=== PATIENT | male | born 1955 | race Caucasian/White ===

== ENCOUNTER 2023-02-25 10:28 | Observation (INO) | payer MEDICARE, BC ==
[~2023-02-25] VITALS: Ht 172.7 cm; Wt 58.0 kg
[2023-02-25 11:16] LABS: BASOPHILS ABSOLUTE AUTO 0.07 K/mm3 (0.00-0.23); BASOPHILS PERCENT AUTO 1 % (0-2); EOSINOPHILS ABSOLUTE AUTO 0.03 K/mm3 (0.00-0.68); EOSINOPHILS PERCENT AUTO 0 % (0-6); Hematocrit 47.8 % (37.0-53.0); Hemoglobin 16.9 g/dL (13.5-17.5); IMMATURE GRAN ABSOLUTE AUTO 0.04 K/mm3 (0.00-0.10); IMMATURE GRAN PERCENT AUTO 0 % (0-1); LYMPHOCYTES ABSOLUTE AUTO 1.12 K/mm3 (0.84-5.20); LYMPHOCYTES PERCENT AUTO 12 % (21-46); MONOCYTES ABSOLUTE AUTO 1.06 K/mm3 (0.16-1.47); MONOCYTES PERCENT AUTO 11 % (4-13); Mean Corpuscular HGB 37.7 pg (26.0-34.0); Mean Corpuscular HGB Conc 35.4 g/dL (31.5-36.5); Mean Corpuscular Volume 107 fL (80-100); Mean Platelet Volume 10.9 fL (9.1-12.4); NEUTROPHILS ABSOLUTE AUTO 7.44 K/mm3 (1.96-9.15); NEUTROPHILS PERCENT AUTO 76 % (41-73); Platelet Count 132 K/mm3 (150-400); RDW Coefficient Variation 13.1 % (11.7-14.2); RDW Standard Deviation 51.9 fL (35.1-46.3); Red Blood Cell Count 4.48 M/mm3 (4.30-5.90); White Blood Cell Count 9.76 K/mm3 (4.00-11.30)
[2023-02-25 11:43] LABS: Albumin, Blood 3.7 g/dL (3.4-5.0); Albumin/Globulin Ratio 1.1 (0.8-1.8); Bilirubin, Total 2.7 mg/dL (0.1-1.0); Bun/Creatinine Ratio 13.4 (12.0-20.0); Calcium, Blood 8.4 mg/dL (8.5-10.1); Creatinine, Blood 1.64 mg/dL (0.60-1.20); Globulin, Blood 3.4 g/dL (2.2-4.0); Total Protein, Blood 7.1 g/dL (6.4-8.2)
[2023-02-25 11:45] LABS: Potassium, Blood 2.4 mmol/L (3.5-5.5)
[2023-02-25 14:26] VITALS: BP 167/92
[2023-02-25 15:16] LABS: U Amphetamine Screen Not Detected; U Barbituate Screen Not Detected; U Benzodiazapine Screen Not Detected; U Buprenorphine Screen Not Detected; U Cannabinoids Screen Not Detected; U Cocaine Screen Not Detected; U Methadone Screen Not Detected; U Methamphetamine Screen Not Detected; U Opiates Screen Not Detected; U Oxycodone Screen Not Detected; U Phencyclidine Screen Not Detected
[2023-02-25 16:47] VITALS: BP 142/80
[2023-02-25 17:32] LABS: Magnesium, Blood 1.9 mg/dL (1.6-2.4); Potassium, Blood 2.8 mmol/L (3.5-5.5)
--- NOTE | 2023-02-25 17:45 | NUR ---
ADMISSION/SHIFT SUMMARY: PT IS A NEW ADMIT, ARRIVING TO UNIT AT APPROX 1415. PT ARRIVES A&Ox4, ANSWERS ALL QUESTIONS APPROPRIATELY, COOPERATIVE W/CARE, TRANSFERS SELF F/GURNEY TO BED. PT REPORTS DYSPNEA W/ACTIVITY, DENIES AT REST, O2 SATS >93% ON RA. SINUS RHYTHM ON MONITOR, RATE 90s, PT DENIES CHEST PAIN. PT REPORTS SMOKING 1.5 PPD, NICOTINE PATCH IN PLACE. 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 SINCE ARRIVAL, PT HAS HAD 2 LOOSE STOOLS, DENIES ABD PAIN OR N/V. FLUIDS INFUSING PER ORDERS. WILL CONTINUE TO MONITOR AND TREAT ACCORDINGLY UNTIL CHANGE OF SHIFT.
[2023-02-25 20:22] VITALS: BP 141/89
[2023-02-26 00:53] VITALS: BP 168/100
[2023-02-26 03:58] VITALS: BP 155/90
[2023-02-26 04:03] LABS: Bun/Creatinine Ratio 21.3 (12.0-20.0); Calcium, Blood 7.7 mg/dL (8.5-10.1); Creatinine, Blood 0.75 mg/dL (0.60-1.20); Magnesium, Blood 1.7 mg/dL (1.6-2.4); Potassium, Blood 2.9 mmol/L (3.5-5.5)
[2023-02-26 07:15] VITALS: BP 158/99
[2023-02-26 11:39] VITALS: BP 165/94
[2023-02-26 14:16] VITALS: BP 163/93
[2023-02-26] MEDS ORDERED: NICO21TP TOP (15:08)
[2023-02-26] MEDS ORDERED: MULVITA PO (15:08)
[2023-02-26] MEDS ORDERED: Prinivil10 MG PO (15:08)
[2023-02-26] MEDS ORDERED: POTCHL20ER PO (15:09)
--- NOTE | 2023-02-26 16:22 | NUR ---
DISCHARGE HOME PT A&O X4. BP ELEVATED. VSS. SPO2 > 92% ON RA. MONITOR SHOWING SR. FOLLOW UP EKG DONE & SEEN BY MD SETHI THIS SHIFT. PT DENYING PAIN/DISCOMFORT. PT DENYING DIARRHEA LAST NIGHT & TODAY W/ PT REPORT OF LAST DIARRHEA YESTERDAY X2. PT POTASSIUM SUPPLEMENTED, SEE EMAR. DISCHARGE INSTRUCTIONS REVIEWED W/ PT & SENT HOME W/ PT. PIVs REMOVED. PT TAKEN OUT BY PCT IN WHEELCHAIR W/ BELONGINGS & FRIEND @ APPROX 1600.
== END 2023-02-26 16:13 | disposition home or self-care (01) ==
LOC: ER 10:28 → PCU 10:29
PROVIDERS: Emergency Medicine; Physician Assistant; ADMIT Internal Medicine
DX: N17.9 Acute kidney failure, unspecified (principal); G92.8 Other toxic encephalopathy; E87.6 Hypokalemia; E83.42 Hypomagnesemia; F10.20 Alcohol dependence, uncomplicated; R19.7 Diarrhea, unspecified; F17.210 Nicotine dependence, cigarettes, uncomplicated
CPT/HCPCS: 36415; 70450; 70496; 71045; 71100; 80048; 80053; 82140; 82947; 83690; 83735; 83880; 84132; 84484; 85025; 85379; 93005; 93010; 96361; 96365-59; 96372; 96375-59; 96376; 99285-25; A9270; G0378; J1644; J3475; J3480; J7030; J7050; J7120; Q9967

== ENCOUNTER 2024-02-26 09:59 | Day surgery (SDC) | payer MEDICARE ==
[~2024-02-26] VITALS: Ht 172.7 cm; Wt 72.1 kg
[~2024-02-26 09:59] MED LIST: AMLO10 PO; AMOCLA875 PO; ATOR10 PO; Bisoprolol Fumar5 MG PO; FAMO20 PO; FOLI1 PO; LISI10 PO; MULVITA PO; NICO21TP TOP; ONDA4ODT MM; POTCHL20ER PO; VITAMIN B-1100 M1 PO
[2024-02-26] MEDS ORDERED: Lactated Ringer's 1,000 ML IV ONE ×2 (10:09→10:15)
[2024-02-26] MEDS ORDERED: NS 50 ML IV ONE (10:09)
[2024-02-26] MEDS ORDERED: CeFAZolin Sodium 2,000 MG VIAL ONE (10:09)
[2024-02-26] MEDS ORDERED: Midazolam HCl 1MG / ML 2ML Vial ONE (10:27)
[2024-02-26] MEDS ORDERED: FentaNYL Citrate 50 MCG/ML 2 ML Injection ONE (10:27)
[2024-02-26] MEDS ORDERED: propofoL 20 ML IV ONE (10:27)
[2024-02-26] MEDS ORDERED: Dexamethasone Sod Phos 10 MG/ML 1ML VIAL ONE (11:51)
[2024-02-26] MEDS ORDERED: Ketorolac Tromethamine 30mg Vial ONE (11:51)
[2024-02-26] MEDS ORDERED: Ondansetron HCl 2 MG / ML 2ML Vial ONE (11:51)
--- NOTE | 2024-02-26 12:05 | NUR ---
02/26/24 Radha Martinez 30ML OF BUPIVACAINE 0.25% MIXED AND VERIFIED WITH 0.15ML OF EPI (1MG/ML) TO MAKE BUPIVACAINE 0.25% WITH EPI 1:200,000 FOR INJECTION AT THE OPSITE.
[2024-02-26] MEDS ORDERED: EPINEPhrine HCl 1 MG/ML 1ML Amp XX ONE ×2 (12:07)
[2024-02-26] MEDS ORDERED: Bupivacaine HCl 0.25% 30 ML Injection INJ ONE ×2 (12:07)
[2024-02-26 12:43] VITALS: BP 143/74
== END 2024-02-26 13:39 | disposition home or self-care (01) ==
LOC: ORSCSDS 09:59
PROVIDERS: Orthopaedic Surgery
PROC: 01N40ZZ Release Ulnar Nerve, Open Approach (ICD-10-PCS; principal; 2024-02-26 14:00)
DX: G56.22 Lesion of ulnar nerve, left upper limb (principal); I10 Essential (primary) hypertension; E78.5 Hyperlipidemia, unspecified; H35.039 Hypertensive retinopathy, unspecified eye; K21.9 Gastro-esophageal reflux disease without esophagitis; F17.210 Nicotine dependence, cigarettes, uncomplicated; Z79.899 Other long term (current) drug therapy
CPT/HCPCS: J0171; J0690; J1100; J1885; J2250; J2405; J2704; J3010; J7120

== ENCOUNTER 2024-04-30 10:31 | Day surgery (SDC) | payer OTHER ==
[~2024-04-30] VITALS: Ht 172.7 cm; Wt 70.6 kg
[~2024-04-30 10:31] MED LIST changes: +Lactated Ringer's 1,000 ML IV ONE; +propofoL 50 ML IV ONE
[2024-04-30] MEDS ORDERED: NALTREX4.5 MG (10:46)
[2024-04-30] MEDS ORDERED: LEVSOD25 (10:46)
[2024-04-30] MEDS ORDERED: OMEP20ER (10:46)
[2024-04-30] MEDS ORDERED: Lactated Ringer's 1,000 ML IV ONE (11:18)
[2024-04-30] MEDS ORDERED: Bisoprolol Fumar5 MG (11:33)
--- NOTE | 2024-04-30 12:24 | NUR ---
04/30/24 1224 Prasanna Jon RECIEVED REPORT FROM ERASMO ARVIZU AT 1223.
[2024-04-30 13:05] VITALS: BP 128/77
== END 2024-04-30 13:09 | disposition home or self-care (01) ==
LOC: ORSCSDS 10:31
PROVIDERS: Internal Medicine Gastroenterology
PROC: 0DB98ZX Excision of Duodenum, Via Natural or Artificial Opening Endoscopic, Diagnostic (ICD-10-PCS; principal; 2024-04-30 12:30)
PROC: 0DBK8ZX Excision of Ascending Colon, Via Natural or Artificial Opening Endoscopic, Diagnostic (ICD-10-PCS; principal; 2024-04-30 12:30)
PROC: 0DBM8ZX Excision of Descending Colon, Via Natural or Artificial Opening Endoscopic, Diagnostic (ICD-10-PCS; principal; 2024-04-30 12:30)
PROC: 0DB68ZX Excision of Stomach, Via Natural or Artificial Opening Endoscopic, Diagnostic (ICD-10-PCS; principal; 2024-04-30 12:30)
PROC: 0DBL8ZX Excision of Transverse Colon, Via Natural or Artificial Opening Endoscopic, Diagnostic (ICD-10-PCS; principal; 2024-04-30 12:30)
DX: D50.9 Iron deficiency anemia, unspecified (principal); D12.2 Benign neoplasm of ascending colon; D12.3 Benign neoplasm of transverse colon; D12.4 Benign neoplasm of descending colon; K29.50 Unspecified chronic gastritis without bleeding; E53.8 Deficiency of other specified B group vitamins; K21.9 Gastro-esophageal reflux disease without esophagitis; I10 Essential (primary) hypertension; Z79.82 Long term (current) use of aspirin; Z79.899 Other long term (current) drug therapy; F17.210 Nicotine dependence, cigarettes, uncomplicated
CPT/HCPCS: 88305; 88342; J2704; J7120

== ENCOUNTER 2024-05-09 12:42 | Emergency (ER) | payer OTHER ==
[~2024-05-09] VITALS: Ht 172.7 cm; Wt 71.7 kg
[~2024-05-09 12:42] MED LIST changes: +Bisoprolol Fumar5 MG; +LEVSOD25 PO; -Lactated Ringer's 1,000 ML IV ONE; +NALTREX4.5 MG; +OMEP20ER; -propofoL 50 ML IV ONE
[2024-05-09] MEDS ORDERED: Naltrexone HCl50 MG PO (13:03)
[2024-05-09] MEDS ORDERED: Famotidine 20 MG Tab PO ONE (13:30)
[2024-05-09] MEDS ORDERED: DiphenhydrAMINE HCl 50 MG Cap PO ONE (13:30)
[2024-05-09 14:00] VITALS: BP 165/87
== END 2024-05-09 14:19 | disposition home or self-care (01) ==
LOC: ER 12:42
DX: T78.40XA Allergy, unspecified, initial encounter (principal); X58.XXXA Exposure to other specified factors, initial encounter; Z79.899 Other long term (current) drug therapy
CPT/HCPCS: A9270

== ENCOUNTER 2025-01-27 16:06 | Emergency (ER) | payer OTHER ==
[~2025-01-27] VITALS: Ht 172.7 cm; Wt 67.1 kg
[~2025-01-27 16:06] MED LIST changes: +ATOR40TA PO; +Bisoprolol Fuma10 MG PO; +Naltrexone HCl50 MG PO; +Oxybutynin Chlo10 MG PO; +[UNRECOGNIZED DRUG - OTHER] PO
[2025-01-27 17:11] LABS: BASOPHILS ABSOLUTE AUTO 0.12 K/mm3 (0.00-0.23); BASOPHILS PERCENT AUTO 2 % (0-2); EOSINOPHILS ABSOLUTE AUTO 0.07 K/mm3 (0.00-0.68); EOSINOPHILS PERCENT AUTO 1 % (0-6); Hematocrit 46.6 % (37.0-53.0); Hemoglobin 16.1 g/dL (13.5-17.5); IMMATURE GRAN ABSOLUTE AUTO 0.01 K/mm3 (0.00-0.10); IMMATURE GRAN PERCENT AUTO 0 % (0-1); LYMPHOCYTES ABSOLUTE AUTO 1.30 K/mm3 (0.84-5.20); LYMPHOCYTES PERCENT AUTO 21 % (21-46); MONOCYTES ABSOLUTE AUTO 0.87 K/mm3 (0.16-1.47); MONOCYTES PERCENT AUTO 14 % (4-13); Mean Corpuscular HGB Conc 34.5 g/dL (31.5-36.5); Mean Corpuscular Volume 102 fL (80-100); NEUTROPHILS ABSOLUTE AUTO 3.82 K/mm3 (1.96-9.15); NEUTROPHILS PERCENT AUTO 62 % (41-73); NRBC ABSOLUTE 0.00 K/mm3 (0.00-0.02); NRBC Auto 0.0 /100 WBC (0.0-0.2); Platelet Count 169 K/mm3 (150-400); RDW Coefficient Variation 13.3 % (11.7-14.2); RDW Standard Deviation 51.0 fL (35.1-46.3)
[2025-01-27 17:32] LABS: Alanine Aminotransfer (ALT/SGP 20.0 U/L (12-78); Albumin, Blood 3.9 g/dL (3.4-5.0); Albumin/Globulin Ratio 1.1 (0.8-1.8); Anion Gap 5.0 mmol/L (3-11); Aspartate Aminotrans (AST/SGOT 24.0 U/L (12-37); Bilirubin, Total 2.3 mg/dL (0.1-1.0); Blood Urea Nitrogen 15.0 mg/dL (8-24); CO2, Blood 31.0 mmol/L (21-32); Calcium, Blood 8.8 mg/dL (8.5-10.1); Chloride, Blood 106.0 mmol/L (98-108); Creatinine, Blood 1.07 mg/dL (0.60-1.20); Globulin, Blood 3.5 g/dL (2.2-4.0); Glucose, Blood 110.0 mg/dL (70-99); Potassium, Blood 3.9 mmol/L (3.5-5.5); Sodium, Blood 138.0 mmol/L (136-145); Total Protein, Blood 7.4 g/dL (6.4-8.2)
[2025-01-27 17:52] LABS: Source, Urine Clean Catch
[2025-01-27 18:08] LABS: Color, Urine Yellow (P-Yellow); Glucose Qualitative, Urine Neg (Neg); Ketones, Urine 1+ (Neg); Leukocyte Esterase, Urine 1+ (Neg); Protein, Urine 1+ (Neg); Specific Gravity, Urine 1.005 (1.003-1.022); Urobilinogen, Urine 2+ (Normal)
[2025-01-27 18:23] LABS: Bilirubin, Urine 1+ (Neg)
[2025-01-27 18:25] LABS: Red Blood Cells, Urine 0-2 /hpf (0-2)
[2025-01-27] MEDS ORDERED: Ketorolac Tromethamine 15mg Vial IV ONE (21:05)
[2025-01-27] MEDS ORDERED: NS 1,000 ML IV SCH (21:30)
[2025-01-27 23:37] VITALS: BP 194/111
== END 2025-01-27 23:39 | disposition home or self-care (01) ==
LOC: ER 16:06
PROVIDERS: Student in an Organized Health Care Education/Training Program
DX: K80.20 Calculus of gallbladder without cholecystitis without obstruction (principal); E86.0 Dehydration; Z79.890 Hormone replacement therapy; Z79.899 Other long term (current) drug therapy
CPT/HCPCS: 74177; 76705; 80053; 81001; 83690; 85025; 96361; 96374-59; 99284-25; J1885; J7030; Q9967